=== PATIENT | female | born 2000 | race Caucasian/White ===

== ENCOUNTER 2018-11-02 14:46 | Emergency (ER) | payer BC ==
--- NOTE | 2018-11-02 15:34 | UC ---
Complaint Female HPI - HPI Summary HPI Summary: 18-year-old female presents with complaints of dysuria, frequency, and urgency. States she first had some symptoms approximately one week ago and took some [id number] Azo with improvement in symptoms and then this morning symptoms returned. Last menstrual period 11/02/2018. Patient is sexually active with a single male partner. Does not use any control. Denies fever, chills, back or flank pain, abdominal pain, nausea, vomiting, hematuria, vaginal discharge, dyspareunia, or abnormal vaginal bleeding. Patient is requesting STI screening at this time. - History Of Current Complaint Chief Complaint: UCGU Stated Complaint: URINARY COMPLAINT Time Seen by Provider: 11/02/18 15:01 Hx Obtained From: Patient Hx Last Menstrual Period: 10/23/18 Pain Intensity: 0 - Allergies/Home Medications Allergies/Adverse Reactions: Allergies Allergy/AdvReac Type Severity Reaction Status Date / Time Penicillins Allergy Hives Verified 11/02/18 15:05 Home Medications: Home Medications Adapalene/Benzoyl Peroxide [Epiduo Forte 0.3-2.5 %] 1 gel EX DAILY 11/02/18 [ History Confirmed 11/02/18] PMH/Surg Hx/FS Hx/Imm Hx Previously Healthy: Yes - Denies significant PMH - Surgical History Surgical History: None - Family History Known Family History: Positive: Non-Contributory - Social History Occupation: Student Lives: Dormitory/Roommates Alcohol Use: Occasionally Substance Use Type: None Smoking Status (MU): Never Smoked Tobacco Review of Systems All Other Systems Reviewed And Are Negative: Yes Constitutional: Negative: Fever Respiratory: Positive: Negative Cardiovascular: Positive: Negative Gastrointestinal: Negative: Abdominal Pain, Vomiting, Diarrhea, Nausea Genitourinary: Positive: Dysuria, Frequency, Urgency. Negative: Hematuria, Vaginal/Penile Burning, Vaginal/Penile Itching, Vaginal/Penile Discharge, Vaginal/Penile Pain, Ulceration/Lesion Musculoskeletal: Positive: Negative Neurological: Positive: Negative Is Patient Immunocompromised?: No Physical Exam - Summary Physical Exam Summary: GENERAL APPEARANCE: Well developed, well nourished, alert and cooperative, and appears to be in no acute distress. CARDIAC: Normal S1 and S2. No S3, S4 or murmurs. Rhythm is regular. There is no peripheral edema, cyanosis or pallor. Extremities are warm and well perfused. Capillary refill is less than 2 seconds. Peripheral pulses intact. LUNGS: Clear to auscultation without rales, rhonchi, wheezing or diminished breath sounds. ABDOMEN: Positive bowel sounds. Soft, nondistended, nontender. No guarding or rebound. No masses or hepatosplenomegally. No CVA tenderness. MUSKULOSKELETAL: ROM intact to all extremities. No joint erythema or tenderness. Normal muscular development. Normal gait. SKIN: Skin normal color, texture and turgor with no lesions or eruptions. Triage Information Reviewed: Yes Vital Signs: Initial Vital Signs Temp 99.2 F 11/02/18 15:01 Pulse 82 11/02/18 15:01 Resp 16 11/02/18 15:01 BP 123/68 11/02/18 15:01 Pulse Ox 99 11/02/18 15:01 Vital Signs Reviewed: Yes Complaint Female Dx - Course Course Of Treatment: 18-year-old female presents with complaints of dysuria, frequency, and urgency. States she first had some symptoms approximately one week ago and took some [id number] Azo with improvement in symptoms and then this morning symptoms returned. Last menstrual period 11/02/2018. Patient is sexually active with a single male partner. Does not use any control. Denies fever, chills, back or flank pain, abdominal pain, nausea, vomiting, hematuria, vaginal discharge, dyspareunia, or abnormal vaginal bleeding. Patient is requesting STI screening at this time. Afebrile. Vital signs stable. Exam was overall unremarkable. Patient had started taking Azo this morning and therefore [id number] urinalysis was not able to be performed. A urine culture as well as specimens for STI screening were obtained and sent. Based on patient's symptoms will start her on Bactrim DS 1 tab twice a day 5 days pending the urine culture results. Patient was counseled on STI's as well as safe sex practices. Recommending abstinence or consistent condom use. Patient is to return here or follow up with the [facility] in 3 days if symptoms do not improve. Anticipatory guidance and warning symptoms reviewed with the patient. Verbalized understanding and agrees with plan of care. - Differential Dx/Diagnosis Differential Diagnosis/HQI/PQRI: Pelvic Inflammatory Disease, , Renal Colic, Sexually Transmitted Disease, Urinary Tract Infection Provider Diagnosis: UTI (urinary tract infection) Discharge - Sign-Out/Discharge Documenting (check all that apply): Patient Departure All imaging exams completed and their final reports reviewed: No Studies - Discharge Plan Condition: Stable Disposition: HOME Prescriptions: Sulfamethox/Trimethoprim DS* [Bactrim DS 800/160 TAB*] 1 tab PO BID #10 tab Patient Education Materials: Sexually Transmitted Diseases (ED), Safe Sex (ED) , Urinary Tract Infection in Women (ED) Referrals: No Primary Care Phys,NOPCP [Primary Care Provider] - Additional Instructions: Your urine test in the clinic today is suggestive of a urinary tract infection. We will start you on an antibiotic to treat for the infection. We will also send a urine culture today to see what bacteria grow out and make sure the antibiotic you were prescribed is appropriate to treat the infection. It will take 48-72 hours to get these results. We will contact you if there is any change in your treatment plan. Start Bactrim DS 1 tab twice a day for 5 days. You may continue to use the Azo for next 2 days to help with the discomfort but you should stop after 2 days so you do not mask any symptoms. Drink plenty of fluids. To help prevent urinary tract infections: 1) Be sure to wipe from front to back. 2) Urinate immediately after any sexual intercourse. 3) Avoid taking bubble baths. Return here of follow up with the [facility] in 3-5 days if symptoms persist. We did screening for sexually transmitted infections as you requested. We will contact you if any of these are positive and treat you appropriately. Be aware that a negative HIV test today does not mean that you do not have an HIV infection as there is a 3 month window between time of exposure and a positive test therefore it is important that you be retested again in 3 months. You need to abstain from all sexual intercourse or use condoms consistently during this time otherwise the clock is reset and you will need additional follow up testing. Seek immediate medical attention in the emergency room if you develop fever greater than 100.5 F, have severe abdominal pain, persistent vomiting, or any worsening of symptoms. - Billing Disposition and Condition Condition: STABLE Disposition: Home
[2018-11-03 13:27] LABS: Neisseria gonorrhoeae (GC) RNA Negative (Negative)
--- NOTE | 2018-11-04 07:21 | UC ---
- Progress Note Progress Note: Your STI screening including Syphillis, HIV, Gonorrhea and Chlamydia are all negative. Course/Dx - Diagnoses Provider Diagnoses: UTI (urinary tract infection) Discharge - Sign-Out/Discharge Documenting (check all that apply): Post-Discharge Follow Up All imaging exams completed and their final reports reviewed: No Studies - Discharge Plan Condition: Stable Disposition: HOME Prescriptions: Sulfamethox/Trimethoprim DS* [Bactrim DS 800/160 TAB*] 1 tab PO BID #10 tab Patient Education Materials: Sexually Transmitted Diseases (ED), Safe Sex (ED) , Urinary Tract Infection in Women (ED) Referrals: No Primary Care Phys,NOPCP [Primary Care Provider] - Additional Instructions: Your urine test in the clinic today is suggestive of a urinary tract infection. We will start you on an antibiotic to treat for the infection. We will also send a urine culture today to see what bacteria grow out and make sure the antibiotic you were prescribed is appropriate to treat the infection. It will take 48-72 hours to get these results. We will contact you if there is any change in your treatment plan. Start Bactrim DS 1 tab twice a day for 5 days. You may continue to use the Azo for next 2 days to help with the discomfort but you should stop after 2 days so you do not mask any symptoms. Drink plenty of fluids. To help prevent urinary tract infections: 1) Be sure to wipe from front to back. 2) Urinate immediately after any sexual intercourse. 3) Avoid taking bubble baths. [facility] if symptoms persist. We did screening for sexually transmitted infections as you requested. We will contact you if any of these are positive and treat you appropriately. Be aware that a negative HIV test today does not mean that you do not have an HIV infection as there is a 3 month window between time of exposure and a positive test therefore it is important that you be retested again in 3 months. You need to abstain from all sexual intercourse or use condoms consistently during this time otherwise the clock is reset and you will need additional follow up testing. Seek immediate medical attention in the emergency room if you develop fever greater than 100.5 F, have severe abdominal pain, persistent vomiting, or any worsening of symptoms. - Billing Disposition and Condition Condition: STABLE Disposition: Home
--- NOTE | 2018-11-04 11:36 | UC ---
- Progress Note Progress Note: Urine culture is sensitive to bactrim, which she is currently on. No further change in intial management Course/Dx - Diagnoses Provider Diagnoses: UTI (urinary tract infection) Discharge - Sign-Out/Discharge Documenting (check all that apply): Post-Discharge Follow Up All imaging exams completed and their final reports reviewed: No Studies - Discharge Plan Condition: Stable Disposition: HOME Prescriptions: Sulfamethox/Trimethoprim DS* [Bactrim DS 800/160 TAB*] 1 tab PO BID #10 tab Patient Education Materials: Sexually Transmitted Diseases (ED), Safe Sex (ED) , Urinary Tract Infection in Women (ED) Referrals: No Primary Care Phys,NOPCP [Primary Care Provider] - Additional Instructions: Your urine test in the clinic today is suggestive of a urinary tract infection. We will start you on an antibiotic to treat for the infection. We will also send a urine culture today to see what bacteria grow out and make sure the antibiotic you were prescribed is appropriate to treat the infection. It will take 48-72 hours to get these results. We will contact you if there is any change in your treatment plan. Start Bactrim DS 1 tab twice a day for 5 days. You may continue to use the Azo for next 2 days to help with the discomfort but you should stop after 2 days so you do not mask any symptoms. Drink plenty of fluids. To help prevent urinary tract infections: 1) Be sure to wipe from front to back. 2) Urinate immediately after any sexual intercourse. 3) Avoid taking bubble baths. [facility] if symptoms persist. We did screening for sexually transmitted infections as you requested. We will contact you if any of these are positive and treat you appropriately. Be aware that a negative HIV test today does not mean that you do not have an HIV infection as there is a 3 month window between time of exposure and a positive test therefore it is important that you be retested again in 3 months. You need to abstain from all sexual intercourse or use condoms consistently during this time otherwise the clock is reset and you will need additional follow up testing. Seek immediate medical attention in the emergency room if you develop fever greater than 100.5 F, have severe abdominal pain, persistent vomiting, or any worsening of symptoms. - Billing Disposition and Condition Condition: STABLE Disposition: Home
== END 2018-11-02 16:02 | disposition home or self-care (01) ==
LOC: UCCORT 14:46
DX: N39.0 Urinary tract infection, site not specified (principal); Z88.0 Allergy status to penicillin
CPT/HCPCS: 36415; 84702; 86703; 86780; 87077; 87086; 87184; 87186; 87491; 87591; 99202; G0463